=== PATIENT | female | born 1980 | race Caucasian/White ===

== ENCOUNTER → 2017-10-30 | Outpatient (CLI) | payer OTHER ==
--- NOTE | 2017-10-30 16:01 | DIAGNOSTIC IMAGING REPORT ---
THYROID ULTRASONOGRAPHY CLINICAL HISTORY: THYROID NODULES COMPARISON STUDY: No previous studies for comparison. FINDINGS: The right lobe of the thyroid measures 3.8 x 1.9 x 1.8 cm. The left lobe measures 4.1 x 1.8 x 1.9 cm. Both lobes are markedly heterogeneous in echotexture. There is bilateral thyroid gland hyperemia. There is a 4 mm hyperechoic lower pole left lobe nodule. IMPRESSION: Markedly heterogeneous thyroid echotexture with hyperemia. The findings are likely secondary to thyroiditis. Clinical correlation in this regard is advocated. Electronically signed by: Dick Brush M.D. 10/30/2017 4:00 PM Dictated Date/Time: 10/30/2017 3:59 PM
== END | disposition home or self-care (01) ==
LOC: C.ULTRBC 15:23
PROVIDERS: ATTEND Internal Medicine Endocrinology, Diabetes & Metabolism
DX: E04.2 Nontoxic multinodular goiter (principal)